=== PATIENT | female | born 1955 | race African-American/Black ===

== ENCOUNTER 2021-12-15 05:47 | Inpatient (IN) ==
[2021-12-15] MEDS ORDERED: VANCOMYCIN INJ 1,000 MG in SODIUM CHLORIDE 0.9% 250 ML IV ONE (06:00)
[2021-12-15] MEDS: LACTATED RINGERS 1,000 ML IV SCH ×2 (06:25→08:47)
[2021-12-15] MEDS ORDERED: GABAPENTIN 400 MG CAPSULE ONE (06:32)
[2021-12-15] MEDS ORDERED: FAMOTIDINE 20 MG TABLET ONE (06:32)
[2021-12-15] MEDS ORDERED: ACETAMINOPHEN 500 MG TABLET ONE (06:32)
[2021-12-15] MEDS ORDERED: DIAZEPAM 5 MG TABLET ONE (06:32)
[2021-12-15] MEDS ORDERED: BUPIVACAINE 0.5% 50 ML VIAL ONE (06:36)
[2021-12-15] MEDS ORDERED: DEXAMETHASONE 4 MG/1 ML VIAL ONE (06:37)
[2021-12-15] MEDS ORDERED: buprenorphine HCL 0.3 MG/ML VIAL ONE (06:37)
[2021-12-15] MEDS ORDERED: DEXMEDETOMIDINE 200 MCG/2 ML VIAL ONE (06:37)
[2021-12-15] MEDS ORDERED: LIDOCAINE 2% 5 ML VIAL ONE (06:37)
[2021-12-15] MEDS ORDERED: KETAMINE 500 MG/10 ML VIAL ONE (06:37)
[2021-12-15] MEDS ORDERED: FAMOTIDINE 20 MG TABLET PO ONE (07:00)
[2021-12-15] MEDS ORDERED: LACTULOSE 20 GM/30 ML UDCUP PO PRN (07:07)
[2021-12-15] MEDS ORDERED: BISACODYL 10 MG SUPP RECTAL PRN (07:07)
[2021-12-15] MEDS ORDERED: PROMETHAZINE 25 MG/1 ML VIAL IM PRN (07:07)
[2021-12-15] MEDS ORDERED: ONDANSETRON 4 MG/2 ML VIAL IV PRN (07:07)
[2021-12-15] MEDS ORDERED: diphenhydrAMINE CAP 25 MG CAPSULE PO PRN (07:07)
[2021-12-15] MEDS ORDERED: TEMAZEPAM 7.5 MG CAPSULE PO PRN (07:07)
[2021-12-15] MEDS ORDERED: MAGNESIUM HYDROXIDE SUSP 30 ML UDCUP PO PRN (07:07)
[2021-12-15] MEDS ORDERED: METHYLPHENIDATE HCL 10 MG PO PRN (07:09)
[2021-12-15] MEDS ORDERED: DEXTROSE 10% 250 ML BAG IV PRN (07:09)
[2021-12-15] MEDS ORDERED: GLUCAGON 1 MG VIAL IM PRN ×2 (07:09→12:52)
[2021-12-15] MEDS ORDERED: MORPHINE 2 MG/1 ML SYRINGE IV PRN (07:26)
[2021-12-15] MEDS ORDERED: TRANEXAMIC ACID 1,000 MG/10 ML VIAL ONE (07:58)
[2021-12-15] MEDS ORDERED: SODIUM CHLORIDE 0.9% 1,000 ML IV ONE (08:03)
[2021-12-15] MEDS ORDERED: CALCIUM CHLORIDE 1,000 MG/10 ML VIAL IV ONE (08:20)
[2021-12-15] MEDS: INSULIN REGULAR 100 UNIT/ML SUBCUT SCH ×4 (12:03→22:09)
[2021-12-15] MEDS ORDERED: DEXTROSE 50% 25 GM/50 ML VIAL IV PRN (12:52)
[2021-12-15] MEDS: ceFAZolin 2,000 MG/50 ML DUPLEX IV SCH ×2 (13:42→21:44)
[2021-12-15] MEDS: PANTOPRAZOLE 40 MG TABLET PO SCH (17:00)
[2021-12-15] MEDS: POTASSIUM CHLORIDE 10 MEQ TABLET PO SCH (17:30)
[2021-12-15] MEDS: GLIMEPIRIDE 2 MG TABLET PO SCH (17:30)
[2021-12-15] MEDS: metFORMIN 500 MG TABLET PO SCH (17:30)
[2021-12-15] MEDS: DOCUSATE SODIUM 100 MG CAPSULE PO SCH (21:44)
[2021-12-15] MEDS: FONDAPARINUX 2.5 MG/0.5 ML SYRINGE SUBCUT SCH (21:45)
[2021-12-16] MEDS: MORPHINE 2 MG/1 ML SYRINGE IV PRN ×2 (05:10→16:54)
[2021-12-16 05:13] LABS: Basophils % 0.1 % (0.0-0.8); Eosinophils % 0.1 % (0.00-10.9); Hemoglobin 10.3 GM/DL (12.0-16.0); Immature Granulocytes % 0.4 %; Immature Granulocytes Absolute 0.03 #; Lymphocytes # 1.3 10*3/uL (1.4-4.0); Lymphocytes % 19.6 % (21.3-54.2); Mean Corpuscular HGB Conc 32.2 GM/DL (32-36); Mean Corpuscular Volume 90.7 FL (87-102); Mean Platelet Volume 9.9 FL (9.6-12.0); Monocytes # 0.5 10*3/uL (0.11-0.8); Monocytes % 7.1 % (1.7-12.7); Neutrophils % 72.7 % (38.7-73.9); Platelet Count 240 T/CUMM (130-400); Red Blood Count 3.53 MC/CUMM (3.8-5.5); Red Cell Distribution Width 12.6 % (9.3-17.3); White Blood Count 6.7 T/CUMM (4-12)
[2021-12-16 05:32] LABS: Calcium 8.7 MG/DL (8.5-10.1); Osmolality,Calculated 272.8 MOS/KG (273-304); Potassium 3.4 MMOL/L (3.5-5.1)
[2021-12-16] MEDS ORDERED: ACETAMINOPHEN 325 MG TABLET PO PRN (07:08)
[2021-12-16] MEDS: INSULIN REGULAR 100 UNIT/ML SUBCUT SCH ×4 (07:24→22:24)
[2021-12-16] MEDS: metFORMIN 500 MG TABLET PO SCH ×2 (08:16→16:48)
[2021-12-16] MEDS: POTASSIUM CHLORIDE 10 MEQ TABLET PO SCH ×2 (08:17→16:48)
[2021-12-16] MEDS: PANTOPRAZOLE 40 MG TABLET PO SCH ×2 (08:17→16:48)
[2021-12-16] MEDS: LOSARTAN/HCTZ 50-12.5 MG TABLET PO SCH (08:17)
[2021-12-16] MEDS: DOCUSATE SODIUM 100 MG CAPSULE PO SCH ×2 (08:17→21:22)
[2021-12-16] MEDS: MELOXICAM 7.5 MG TABLET PO SCH (08:17)
[2021-12-16] MEDS: GLIMEPIRIDE 2 MG TABLET PO SCH ×2 (08:17→16:48)
[2021-12-16] MEDS: FONDAPARINUX 2.5 MG/0.5 ML SYRINGE SUBCUT SCH (21:23)
[2021-12-17] MEDS: INSULIN REGULAR 100 UNIT/ML SUBCUT SCH ×2 (07:09→11:49)
[2021-12-17] MEDS: MORPHINE 2 MG/1 ML SYRINGE IV PRN (08:09)
[2021-12-17] MEDS: POTASSIUM CHLORIDE 10 MEQ TABLET PO SCH (08:11)
[2021-12-17] MEDS: MELOXICAM 7.5 MG TABLET PO SCH (08:12)
[2021-12-17] MEDS: LOSARTAN/HCTZ 50-12.5 MG TABLET PO SCH (08:12)
[2021-12-17] MEDS: metFORMIN 500 MG TABLET PO SCH (08:12)
[2021-12-17] MEDS: GLIMEPIRIDE 2 MG TABLET PO SCH (08:13)
[2021-12-17] MEDS: PANTOPRAZOLE 40 MG TABLET PO SCH (08:13)
[2021-12-17] MEDS: DOCUSATE SODIUM 100 MG CAPSULE PO SCH (08:14)
[2021-12-17 13:07] VITALS: BP 162/89
== END 2021-12-17 14:09 | DRG 470 ==
LOC: N.OR 05:47 → N.SDSINP 05:49 → N.3E 09:38
PROVIDERS: ADMIT Orthopaedic Surgery; ATTEND Orthopaedic Surgery